=== PATIENT | male | born 1975 | race Caucasian/White ===

== ENCOUNTER 2024-01-01 11:51 | Emergency (ER) | payer OTHER, SELFPAY ==
[2024-01-01 11:55] VITALS: BP 217/121
[2024-01-01 12:18] LABS: % Basophils 0.9 % (0-2); % Eosinophils 1.8 % (0-6); % Immature Granulocytes 0.5 % (0-0.5); % Monocytes 9.4 % (1.7-9.3); % Neutrophils 61.4 % (42.2-75.2); Absolute Basophils 0.1 10^3/uL (0-0.2); Absolute Eosinophils 0.1 10^3/uL (0-0.7); Absolute Lymphocytes 1.7 10^3/uL (1.2-3.4); Absolute Monocytes 0.6 10^3/uL (0.1-0.6); Hematocrit 48.7 % (39.0-52.0); Hemoglobin 16.7 g/dL (13.0-18.0); Mean Corp Hgb Conc. 34.3 g/dL (33.0-37.0); Mean Corpuscular Hgb 32.5 pg (27.0-31.0); Mean Corpuscular Volume 94.7 fL (80.0-94.0); Mean Platelet Volume 12.1 fL (7.4-10.4); Nucleated Red Blood Cells % 0 % (-); Platelet Count 179 10^3/uL (130-400); Red Blood Cell Count 5.14 10^6/uL (4.70-6.10); Red Cell Dist. Width 12.4 % (11.5-14.5); White Blood Cell Count 6.5 10^3/uL (4.8-10.8)
[2024-01-01 12:40] VITALS: BP 197/112; BMI 32.7
[2024-01-01 12:42] LABS: ALT (SGPT) 69 U/L (0-50); AST (SGOT) 44 U/L (17-59); Albumin 4.9 g/dl (3.5-5.0); Alkaline Phosphatase 60 U/L (38-126); Blood Urea Nitrogen 14 mg/dl (9-20); Calcium 10.6 mg/dl (8.4-10.2); Carbon Dioxide 26 mmol/L (22-30); Chloride 103 mmol/L (98-107); Estimated Creatinine Clearance 3 ml/min; Glucose 108 mg/dl (70-99); Sodium 140 mmol/L (135-145); Total Bilirubin 0.8 mg/dl (0.2-1.3); Total Protein 7.9 g/dl (6.3-8.2); eGFR > 60.00
--- NOTE | 2024-01-01 12:49 | ED.GENMED ---
History of Present Illness
General
Chief Complaint: Blood Pressure Problem
Source: patient
Time Seen by Provider: 01/01/24 12:37
History of Present Illness
History of Present Illness:
48-year-old male with no previous documented past medical history presenting to the emergency department at the request of urgent care after patient was there for work related physical when he was found to be hypertensive. Patient reports that he
was asymptomatic and continues to be asymptomatic was recommended to come to the ER for further evaluation. Patient denies any headaches, visual changes, chest pain or shortness of breath, abdominal pain, nausea, vomiting or any other concerns.
Social history was noted for alcohol use on weekends stating usually on Thursday and Thursday patient will take about 6 shots of liquor. Denies tobacco history. Family history was noncontributory. No other concerns.
Past History
Past History
ED Past Medical History: None
ED Past Surgical History: None
Social History
Tobacco: Non-smoker
Alcohol: Occasional
Drug: None
Personal: Single
Living: alone
Employment: Employed
Review of Systems
Review of Systems
All Other Systems: ROS reviewed and negative except as documented in HPI and ROS
Phy Exam
Physical Exam
Physical Exam:
GENERAL: Alert , in no apparent distress
EYE: conjunctiva clear
NECK: Supple
ENT: o/p clr, mmm.
CARDIAC: Regular rate and rhythm
LUNGS: Clear breath sounds bilaterally, no acute respiratory distress, no wheezes/rales/rhonchi
NEUROLOGICAL: Alert and oriented
SKIN: Warm and dry, skin intact.
MUSCULOSKELETAL: well perfused.
PSYCH: Normal and appropriate interaction.
Scores
Heart Failure Risk
Heart Failure Risk Score: Not Applicable
Heart Score for Chest Pain Patients
STEMI patient?: Not applicable
Withdrawal Assessment of Alcohol
Withdrawal Assessment Completed?: Not applicable
Course
Orders/Labs/Results
Orders:
Orders
01/01/24 11:58
Electrocardiogram (*1) Urgent
Reason for Study: Other
Other Reason for Exam: elevated BP
01/01/24 11:59
EKG- Treatment ONCE
01/01/24 12:04
CMP [Comprehensive Metabolic Panel] Urgent
Complete Blood Count/With Diff Urgent
Abnormal Lab Results
01/01/24
12:04
MCV 94.7 H fL
(80.0-94.0)
MCH 32.5 H pg
(27.0-31.0)
MPV 12.1 H fL
(7.4-10.4)
Monocytes % 9.4 H %
(1.7-9.3)
Glucose 108 H mg/dl
(70-99)
Calcium 10.6 H mg/dl
(8.4-10.2)
ALT 69 H U/L
(0-50)
01/01/24 12:04
01/01/24 12:04
Vital Signs
Initial and Last Documented VS:
Initial Vital Signs
Temp Pulse Resp BP Pulse Ox
97.9 F 65 18 217/121 98
01/01/24 11:55 01/01/24 11:55 01/01/24 11:55 01/01/24 11:55 01/01/24 11:55
Last Documented Vital Signs
Temp Pulse Resp BP Pulse Ox
97.9 F 65 18 217/121 98
01/01/24 11:55 01/01/24 11:55 01/01/24 11:55 01/01/24 11:55 01/01/24 11:55
MDM/Problems Addressed
Differential Diagnosis Includes:
Asymptomatic hypertension, no concern for hypertensive urgency/emergency, will check labs for any acute kidney dysfunction
MDM/Problems Addressed:
48-year-old male presenting to the ER at the request of urgent care after patient was found to be hypertensive and a reportedly abnormal EKG. On exam here patient's EKG is a sinus arrhythmia without any ischemic changes. Patient is asymptomatic.
Blood pressure in triage was noted to be 217/121. In the ER room patient's blood pressure repeated and was found to be 191/111. Patient is otherwise asymptomatic without any focal physical exam findings. Given patient is without any evidence for
endorgan dysfunction I do believe he is stable for discharge home and outpatient management. Patient currently does not have a primary care provider but does have insurance. Will notify the primary care provider request line via [place] text to
ensure close outpatient follow-up. Due to his lack of follow-up and suspicion for hypertension will provide with 1 month supply of 5 mg amlodipine tablets. Also discussed alcohol cessation and dietary modifications. Patient aware of return
precautions. Stable for discharge home.
*Pulse Oximetry
Patient hypoxic: no
*EKG
Interpreted by ED Provider?: Yes
Heart Rate: 59
Rate: bradycardiac
Rhythm: sinus arrhythmia
[place]: normal axis
Ischemia: no ischemia
*Wire Spinner Interpretation
Rate: normal
Rhythm: sinus arrhythmia
*Critical Care Note
Total Time (30-74mins, 75-104mins- exclusive of procedures): Not Applicable
ED Attending Note
-
Portions of this chart may have been created with voice recognition software.� Occasional wrong word or��sound alike� substitutions may have occurred due to the inherent limitations of voice recognition software.
Discharge Plan
Departure
Patient Disposition: Home (Routine Discharge)
Date of Disposition: 01/01/24
Time of Disposition: 12:50
Patient with high blood pressure during this ER visit?: Yes
Discharge Problem:
Hypertension
Instructions: High Blood Pressure (DC)
Prescriptions:
New
amlodipine 5 mg tablet
5 mg PO DAILY Qty: 30 0RF
Interventions
Interventions:
*Risk Screen - Suicide Last Done: 01/01/24 11:57
*General Assessment Last Done: 01/01/24 11:57
*Neglect/Abuse Screening Last Done: 01/01/24 11:57
*ED COVID-19 Vaccine History Last Done: 01/01/24 11:57
*Nursing Disposition Last Done: 01/01/24 13:06
ED- Cardiac Assessment Last Done: 01/01/24 12:43
ED- Neurological Assessment Last Done: 01/01/24 12:43
ED- Pulmonary Assessment Last Done: 01/01/24 12:43
Discharge Date and Time
Print Language: ANGOLAN
[2024-01-01 13:00] VITALS: BP 178/125
== END 2024-01-01 13:07 | disposition home or self-care (01) ==
LOC: EMR 11:51
PROVIDERS: Emergency Medicine; EMERGENCY PHYSICIAN Emergency Medicine
DX: I10 Essential (primary) hypertension (principal)
CPT/HCPCS: 99283; 80053; 85025; 93005